=== PATIENT | female | born 1970 ===

== ENCOUNTER 2016-08-26 10:03 | Day surgery (SDC) | payer OTHER ==
[2016-08-09 10:32] VITALS: BMI 40.3
[2016-08-26] MEDS ORDERED: Acetaminophen-Codeine 300/30 mg Tab PO PRN (10:54)
[2016-08-26] MEDS ORDERED: Dextrose 5%/0.45% NS 1,000 ML IV SCH (11:00)
[2016-08-26] MEDS ORDERED: Propofol 10 mg/ml Inj (20 ML) ONE (11:31)
[2016-08-26] MEDS ORDERED: Succinylcholine Chloride 20 mg/ml Syr (5 ml) IV ONE (11:31)
[2016-08-26] MEDS ORDERED: Lactated Ringer's 1,000 ML IV ONE (11:35)
[2016-08-26] MEDS ORDERED: ceFAZolin IV 1 gm in Dextrose 2 GM/100 ML BAG IVPB ONE (11:36)
[2016-08-26] MEDS ORDERED: HYDROmorphone 0.5 mg/0.5 ml ISec IVP PRN (12:11)
[2016-08-26] MEDS ORDERED: Lactated Ringer's 1,000 ML IV SCH (12:15)
--- NOTE | 2016-08-26 12:36 | OP ---
PROCEDURE DATE: 08/26/2016 PREOPERATIVE DIAGNOSIS: Possible right piriform sinus lesion. POSTOPERATIVE DIAGNOSIS: Possible right piriform sinus lesion. PROCEDURE: Direct laryngoscopy with biopsy. SIGNIFICANT FINDINGS: No masses, no lesions. PROCEDURE: The patient was brought in the room, placed in supine position. Anesthesia was initiated through an ET tube. Shoulder roll was placed, neck extended. Tooth cover was placed over the upper teeth in order to protect them and was removed at the end of the case. Direct laryngoscope was inse rted into the oral cavity, passed through the oropharynx and hypopharynx. The base of tongue, vallec amy, epiglottis, AE folds, false cords, true cords, piriform sinuses, arytenoids were brought into vi ew. No masses or lesions were noted. Multiple biopsies of the right piriform sinus were taken. Ble eding was controlled using cold water irrigation. The scope was removed. The patient was taken off anesthesia and taken to recovery room in stable manner. Vinnie Zapata MD cc: [id number] TT: 08/26/2016 12:35:41 in
[2016-08-26 13:34] VITALS: RESP 34; TEMP 98.3; O2SAT 100
[2016-08-26 14:31] VITALS: BP 129/74; PULSE 79
== END 2016-08-26 14:00 | disposition home or self-care (01) ==
LOC: C.SDS 10:03
PROVIDERS: ATTEND Otolaryngology
DX: J38.1 Polyp of vocal cord and larynx (principal)
CPT/HCPCS: 31535; 88305; J0690; J2704; J3010; J7120

== ENCOUNTER 2016-10-03 14:43 | Emergency (ER) | payer OTHER ==
[2016-10-03 14:44] VITALS: BMI 40.3
[2016-10-03 14:48] VITALS: BP 126/84; PULSE 89; RESP 16; TEMP 98.7; O2SAT 98
[2016-10-03] MEDS ORDERED: Oxycodone/Acetaminophen 5/325 mg Tab PO STA (15:03)
[2016-10-03] MEDS ORDERED: Tetracaine 0.5% Ophth (OR ONLY) OU STA (15:03)
[2016-10-03] MEDS ORDERED: Oxycodone/Acetaminophen 5/325 mg Tab ONE (15:09)
[2016-10-03] MEDS ORDERED: Tetracaine 0.5% Ophth (OR ONLY) ONE (15:09)
--- NOTE | 2016-10-03 15:15 | C.PDOC ---
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 Patient reports hot oil splashed into her eye and is now complaining of burning and FB sensation. Denies use of contact lens, vision changes, headache or dizziness. 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 HOT OIL SPLASHED INTO EYE. CO BURNING, FB SENSATION. DENIES CONTACT LENS USE, VISION LOSS. EXAM MOD DIST HEENT L EYE NO PERIORB SWELL, TRAUMA. EOMI. L EYE +CORNEAL BURN 9-12 O CLOCK W GEN CONJ ERYTHEMA. PERRLA. Time Seen by Provider: 10/03/16 14:59 Chief Complaint (Nursing): Eye Problem History Per: Patient History/Exam Limitations: no limitations Onset/Duration Of Symptoms: Sudden Onset (CHOREOGRAPHY DIRECTOR) Current Symptoms Are (Timing): Still Present Past Medical History Reviewed: Historical Data, Nursing Documentation, Vital Signs Vital Signs: Last Vital Signs Temp 98.7 F 10/03/16 14:47 Pulse 89 10/03/16 14:47 Resp 16 10/03/16 14:47 BP 126/84 10/03/16 14:47 Pulse Ox 98 10/03/16 15:19 - Medical History PMH: Asthma, HTN, Sleep Apnea Family History: States: No Known Family Hx - Social History Hx Tobacco Use: No Hx Alcohol Use: No - Immunization History Hx Tetanus Toxoid Vaccination: No Hx Influenza Vaccination: No Hx Pneumococcal Vaccination: No Review Of Systems Except As Marked, All Systems Reviewed And Found Negative. Eyes: Positive for: Other ((+) Left eye injury, burning and FB sensation ). Negative for: Vision Change Neurological: Negative for: Headache, Dizziness Physical Exam - Physical Exam Appears: Non-toxic, No Acute Distress Skin: Warm, Dry, No Rash Head: Atraumatic, Normacephalic Eye(s): right: Normal Inspection, left: PERRL, EOMI, Other (+Corneal burn 9-12 o clock position with general conjunctiva erythema. No periorbitak swelling. No trauma) Extremity: Normal ROM, No Swelling Neurological/Psych: Oriented x3, Normal Speech, Normal Motor ED Course And Treatment O2 Sat by Pulse Oximetry: 98 - Physician Consult Information Time Consulting Physician Contacted: 15:13 Physician Contacted: JOESPH Outcome Of Conversation: D/W DR PINK OPTHO DECKHAND [employer]REES W ER MGMT, WILL FU IN OFFICE TODAY AFTER ED DC Medical Decision Making Medical Decision Making: PLAN: * Percocet PO * Zofran PO Disposition Counseled Patient/Family Regarding: Diagnosis, Need For Followup, Rx Given - Disposition Disposition: HOME/ ROUTINE Disposition Time: 15:16 Condition: IMPROVED Additional Instructions: GO TO EYE DOCTOR IMMEDIATELY. [facility] [address] [place] [address] Hours: Open today 9AM5PM Prescriptions: Acetaminophen/Codeine [Tylenol/Codeine 300 MG/30 MG] 2 tab PO Q6H #20 tab Ciprofloxacin 0.3% [Ciloxan 0.3% Ophth SOLN] 2 drop OD Q2 #1 bottle Ibuprofen [Motrin] 600 mg PO Q6 #30 tab Instructions: How to Use Eye Drops (ED), Second Degree Burn (ED) Forms: Work Excuse Print Language: CAMBODIAN - Clinical Impression Clinical Impression: Thermal burn of cornea - Scribe Statement The provider has reviewed the documentation as recorded by the Scribe Sharla Montgomery Provider Attestation: All medical record entries made by the Dianeibe were at my direction and personally dictated by me. I have reviewed the chart and agree that the record accurately reflects my personal performance of the history, physical exam, medical decision making, and the department course for this patient. I have also personally directed, reviewed, and agree with the discharge instructions and disposition. Procedures - Eye Procedure Alcaine Drops Administered: Yes (TETRACAINE) Progress: TETRACAINE APPLIED FOR PAIN RELIEF. EYE PATCH APPLIED BY ME
== END 2016-10-03 15:20 | disposition home or self-care (01) ==
LOC: C.ER 14:43
DX: T26.12XA Burn of cornea and conjunctival sac, left eye, initial encounter (principal); X10.2XXA Contact with fats and cooking oils, initial encounter; Y93.G3 Activity, cooking and baking; Y92.000 Kitchen of unspecified non-institutional (private) residence as the place of occurrence of the external cause

== ENCOUNTER 2017-04-10 11:11 | Emergency (ER) | payer OTHER ==
[2017-04-10 11:12] VITALS: BMI 40.3
[2017-04-10] MEDS ORDERED: Albuterol-Ipratrop 3 mg / 0.5 (3 ml) UD INH STA (14:18)
[2017-04-10] MEDS ORDERED: Albuterol-Ipratrop 3 mg / 0.5 (3 ml) UD ONE (14:21)
--- NOTE | 2017-04-10 14:45 | RAD ---
Chest x-ray two views History: Cough. Comparison: 08/09/2016 Findings: Diffuse increased interstitial lung markings which may represent mild venous congestion versus mild edema versus mild interstitial infiltrate. Clinical correlation. Mild patchy increased markings at the left lung base. Clinical correlation. Right hilar prominence. Mild cardiomegaly. Degenerative changes in the spine with paravertebral osteophytes. Impression: Diffuse increased interstitial lung markings which may represent mild venous congestion versus mild edema versus mild interstitial infiltrate. Clinical correlation. Mild patchy increased markings at the left lung base. Clinical correlation. Right hilar prominence. Mild cardiomegaly.
--- NOTE | 2017-04-10 15:00 | C.PDOC ---
History Of Present Illness 46-year-old female presents to the emergency department with complaints of a cough, congestion and fever for the past three days. Patient denies any nausea/ vomiting, back pain, symptoms, change in bowel habits, or any other associated symptoms. No other complaints at this time. Time Seen by Provider: 04/10/17 14:00 Chief Complaint (Nursing): Flu-like Symptoms History Per: Patient History/Exam Limitations: no limitations Onset/Duration Of Symptoms: Days Current Symptoms Are (Timing): Still Present Past Medical History Reviewed: Historical Data, Nursing Documentation, Vital Signs Vital Signs: Last Vital Signs Temp 97.8 F 04/10/17 15:08 Pulse 70 04/10/17 15:08 Resp 18 04/10/17 15:08 BP 132/86 04/10/17 15:08 Pulse Ox 98 04/10/17 15:08 - Medical History PMH: Asthma, HTN, Sleep Apnea Family History: States: No Known Family Hx - Social History Hx Tobacco Use: No Hx Alcohol Use: No Hx Substance Use: No - Immunization History Hx Tetanus Toxoid Vaccination: No Hx Influenza Vaccination: No Hx Pneumococcal Vaccination: No Review Of Systems Except As Marked, All Systems Reviewed And Found Negative. Constitutional: Positive for: Fever ENT: Positive for: Nose Congestion Cardiovascular: Negative for: Chest Pain, Palpitations Respiratory: Positive for: Cough. Negative for: Shortness of Breath Gastrointestinal: Negative for: Nausea, Vomiting Musculoskeletal: Negative for: Back Pain Neurological: Negative for: Weakness, Numbness, Headache, Dizziness Physical Exam - Physical Exam Appears: Non-toxic, No Acute Distress Skin: Warm, Dry, No Rash Head: Atraumatic, Normacephalic Eye(s): bilateral: Normal Inspection, PERRL Nose: Other (nasal congestion) Oral Mucosa: Moist Lips: Normal Appearing Neck: Normal ROM, Supple Cardiovascular: Rhythm Regular, No Murmur Respiratory: Normal Breath Sounds, No Accessory Muscle Use, No Rales, No Rhonchi , No Wheezing Extremity: Normal ROM Neurological/Psych: Oriented x3, Normal Speech ED Course And Treatment O2 Sat by Pulse Oximetry: 95 (on RA) Pulse Ox Interpretation: Normal Disposition - Disposition Referrals: [facility] [Outside] Disposition: HOME/ ROUTINE Disposition Time: 14:58 Condition: GOOD Additional Instructions: Follow up with the medical doctor/clinic within 1-2 days without fail. Return if worsened. Prescriptions: Loratadine [Claritin] 10 mg PO DAILY #10 tab predniSONE [Prednisone] 20 mg PO BID #10 tab Promethazine/Codeine [Phenergan/Codeine Oral Syrup] 5 ml PO Q8 PRN #50 ml PRN Reason: Cough Instructions: Acute Bronchitis (ED) Forms: [facility] (Senegalese), School Excuse, Work Excuse Print Language: STATELESS - Clinical Impression Clinical Impression: Bronchitis - Scribe Statement The provider has reviewed the documentation as recorded by the Scribe (Cara Tinoco) All medical record entries made by the Scribe were at my direction and personally dictated by me. I have reviewed the chart and agree that the record accurately reflects my personal performance of the history, physical exam, medical decision making, and the department course for this patient. I have also personally directed, reviewed, and agree with the discharge instructions and disposition.
[2017-04-10 15:09] VITALS: BP 132/86; PULSE 70; RESP 18; TEMP 97.8
[2017-04-10 15:19] VITALS: O2SAT 95
== END 2017-04-10 15:09 | disposition home or self-care (01) ==
LOC: C.ER 11:11
DX: J40 Bronchitis, not specified as acute or chronic (principal)

== ENCOUNTER 2017-07-23 21:19 | Emergency (ER) | payer OTHER ==
[2017-07-23 21:19] VITALS: BMI 40.3
[2017-07-23 21:37] VITALS: RESP 20; TEMP 98.6; O2SAT 100
--- NOTE | 2017-07-23 22:28 | C.PDOC ---
History Of Present Illness 46 year old female with a Hx of chronic back pain presents to the ER with a complaint of lower back pain that worsened today. Patient has not taken anything for the pain. Denies heavy lifting, trauma, dysuria, hematuria, incontinence, weakness or numbness. Time Seen by Provider: 07/23/17 21:40 Chief Complaint (Nursing): Back Pain History Per: Patient History/Exam Limitations: no limitations Onset/Duration Of Symptoms: Hrs Current Symptoms Are (Timing): Still Present Quality Of Discomfort: Unable To Describe Previous Symptoms: Chronic Pain Associated Symptoms: None Exacerbating Factor(s): Turning Recent travel outside of the [place]: No Past Medical History Reviewed: Historical Data, Nursing Documentation, Vital Signs Vital Signs: Last Vital Signs Temp 98.6 F 07/23/17 22:38 Pulse 88 07/23/17 22:38 Resp 20 07/23/17 22:38 BP 114/66 07/23/17 22:38 Pulse Ox 100 07/23/17 23:29 - Medical History PMH: Asthma, HTN, Sleep Apnea Family History: States: Unknown Family Hx - Social History Hx Tobacco Use: No Hx Alcohol Use: No Hx Substance Use: No - Immunization History Hx Tetanus Toxoid Vaccination: No Hx Influenza Vaccination: No Hx Pneumococcal Vaccination: No Review Of Systems Genitourinary: Negative for: Dysuria, Incontinence, Hematuria Musculoskeletal: Positive for: Back Pain Neurological: Negative for: Weakness, Numbness Physical Exam - Physical Exam Appears: Non-toxic, Other (Morbidly obese) Skin: Normal Color, Warm, Dry Head: Atraumatic, Normacephalic Eye(s): bilateral: Normal Inspection Back: No Vertebral Tenderness, Paraspinal Tenderness (Bilateral lumbar), Straight Leg Raising (Positive at 45 degrees) Extremity: Normal ROM (x4) Neurological/Psych: Oriented x3, Normal Speech, Normal Motor, Normal Sensation Gait: Steady ED Course And Treatment O2 Sat by Pulse Oximetry: 100 (Room air) Pulse Ox Interpretation: Normal Progress Note: Flexeril and toradol administered. Patient is ambulatory in the ER with no pain or discomfort, will discharge home with instructions to follow up with PMD or return if symptoms worsen. Disposition Counseled Patient/Family Regarding: Diagnosis - Disposition Referrals: [facility] at [facility] [Outside] Disposition: HOME/ ROUTINE Disposition Time: 22:26 Condition: STABLE Additional Instructions: Take medications as directed Follow up with PMD Return to ER if worse Prescriptions: Cyclobenzaprine [Cyclobenzaprine HCl] 10 mg PO HS #7 tab Naproxen [Naprosyn] 1 tab PO BID PRN #20 tab PRN Reason: Pain Instructions: Low Back Pain (DC) Forms: [employer] (Argentine) Print Language: FRISIAN - Clinical Impression Clinical Impression: Low back pain - 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 - Scribe Statement The provider has reviewed the documentation as recorded by the Scribjanki Monge All medical record entries made by the Denisha were at my direction and personally dictated by me. I have reviewed the chart and agree that the record accurately reflects my personal performance of the history, physical exam, medical decision making, and the department course for this patient. I have also personally directed, reviewed, and agree with the discharge instructions and disposition.
[2017-07-23 22:39] VITALS: BP 114/66; PULSE 88
== END 2017-07-23 22:39 | disposition home or self-care (01) ==
LOC: C.ER 21:19
DX: M54.5 Low back pain (principal); I10 Essential (primary) hypertension
CPT/HCPCS: 96372; 99283; J1885

== ENCOUNTER 2018-01-02 08:56 | Emergency (ER) | payer OTHER, SELFPAY ==
[2018-01-02 08:56] VITALS: BMI 40.3
--- NOTE | 2018-01-02 09:11 | C.PDOC ---
History Of Present Illness 47 y/o female presents to the ED with recurrent left lower back pain, ongoing for 3 days. Patient states the pain occasionally radiates to the left buttock and worsens with movement. No associated weakness or numbness. Patient with prior ED visits for the same. She denies any recent trauma or fall. Denies any other associated symptoms. Time Seen by Provider: 01/02/18 09:10 Chief Complaint (Nursing): Back Pain History Per: Patient History/Exam Limitations: no limitations Onset/Duration Of Symptoms: Days (x3) Current Symptoms Are (Timing): Still Present Past Medical History Reviewed: Historical Data, Nursing Documentation, Vital Signs Vital Signs: Last Vital Signs Temp 98.3 F 01/02/18 09:03 Pulse 76 01/02/18 09:03 Resp 20 01/02/18 09:03 BP 138/85 01/02/18 09:03 Pulse Ox 95 01/02/18 09:03 - Medical History PMH: Asthma, HTN, Sleep Apnea Denies: Chronic Kidney Disease Family History: States: Unknown Family Hx - Social History Hx Tobacco Use: No Hx Alcohol Use: No Hx Substance Use: No - Immunization History Hx Tetanus Toxoid Vaccination: No Hx Influenza Vaccination: No Hx Pneumococcal Vaccination: No Review Of Systems Except As Marked, All Systems Reviewed And Found Negative. Cardiovascular: Negative for: Chest Pain Respiratory: Negative for: Shortness of Breath Genitourinary: Negative for: Dysuria, Frequency, Incontinence Musculoskeletal: Positive for: Back Pain Skin: Negative for: Rash Neurological: Negative for: Weakness, Numbness, Incoordination Physical Exam - Physical Exam Appears: Non-toxic, No Acute Distress Skin: Normal Color, Warm, Dry Head: Atraumatic, Normacephalic Eye(s): bilateral: Normal Inspection Neck: Normal ROM Chest: Symmetrical Respiratory: No Accessory Muscle Use, Other (NARD) Back: No CVA Tenderness, No Vertebral Tenderness, Decreased ROM (Limited full extension/ROM) Extremity: Bilateral: Atraumatic, Normal Color And Temperature, Normal ROM Pulses: Left Dorsalis Pedis: Normal, Right Dorsalis Pedis: Normal Neurological/Psych: Oriented x3, Normal Speech, Normal Cranial Nerves, Normal Motor, Normal Sensation Gait: Steady ED Course And Treatment - Laboratory Results Urine POC: Negative O2 Sat by Pulse Oximetry: 95 (RA) Pulse Ox Interpretation: Normal Progress - Data Reviewed Data Reviewed: Old records Medical Decision Making Medical Decision Making: Impression: Recurrent low back pain Plan: --Urine preg --Toradol 30 mg IM --Flexeril 10 mg PO --Gabapentin 300 mg PO --Tylenol 975 mg PO --Reassess and dispo On reassessment, patient reports improvement in symptoms and is stable for discharge home. Advised patient to follow up with PMD for further evaluation. Disposition Counseled Patient/Family Regarding: Studies Performed, Diagnosis, Need For Followup, Rx Given - Disposition Referrals: [facility] [Outside] [facility] [Outside] Disposition: HOME/ ROUTINE Disposition Time: 09:18 Condition: IMPROVED Instructions: Sciatica (DC) Forms: [employer] (Bahamian), Work Excuse Print Language: SLOVENIAN - POA Present On Arrival: None - Clinical Impression Clinical Impression: Sciatica - Scribe Statement The provider has reviewed the documentation as recorded by the Scribe (Sapna Andrade) Provider Attestation: All medical record entries made by the Scribe were at my direction and personally dictated by me. I have reviewed the chart and agree that the record accurately reflects my personal performance of the history, physical exam, medical decision making, and the department course for this patient. I have also personally directed, reviewed, and agree with the discharge instructions and disposition.
[2018-01-02 09:54] VITALS: BP 139/85; PULSE 74; RESP 18; TEMP 98.5
[2018-01-02 12:14] VITALS: O2SAT 95
== END 2018-01-02 10:11 | disposition home or self-care (01) ==
LOC: C.ER 08:56
DX: M54.30 Sciatica, unspecified side (principal)
CPT/HCPCS: 96372; 99283; J1885

== ENCOUNTER → 2018-01-09 08:50 | Emergency (ER) | payer SELFPAY ==
[2018-01-09 08:51] VITALS: BMI 40.3
== END | disposition left against medical advice (07) ==
LOC: C.ER 08:50
DX: Z02.89 Encounter for other administrative examinations (principal); R42 Dizziness and giddiness

== ENCOUNTER 2018-02-08 21:25 | Emergency (ER) | payer MEDICAID, OTHER, SELFPAY ==
[2018-02-08 21:26] VITALS: BMI 40.3
[2018-02-08 21:39] VITALS: BP 107/69; PULSE 86; RESP 20; TEMP 98.5; O2SAT 96
[2018-02-08] MEDS ORDERED: Sodium Chloride 0.9% 1,000 ML IV ONE (21:55)
[2018-02-08] MEDS ORDERED: Clindamycin 300 MG in Sodium Chloride 0.9% 50 ML IVPB STA (21:56)
[2018-02-08 22:24] LABS: BASO # 0.1 K/uL (0.0-0.2); BASO % 1.3 % (0.0-2.0); EOS # 0.3 K/uL (0.0-0.7); EOS % 2.6 % (0.0-4.0); HEMOGLOBIN 12.5 g/dL (11.0-16.0); LYMPH % 28.1 % (20.0-40.0); MEAN CELL VOLUME 82.6 fL (81.0-99.0); MEAN CORPUSCULAR HEMOGLOBIN 27.2 pg (27.0-31.0); MEAN CORPUSCULAR HGB CONC 32.9 g/dL (33.0-37.0); MONO % 8.8 % (0.0-10.0); NEUT # 6.4 K/uL (1.8-7.0); NEUT % 59.2 % (50.0-75.0); NRBC % 0.1 % (0.0-2.0); RBC 4.61 Mil/uL (3.80-5.20); RED CELL DISTRIBUTION WIDTH 13.5 % (11.5-14.5); WHITE BLOOD COUNT 10.8 K/uL (4.8-10.8)
[2018-02-08 22:33] LABS: HCG,QUALITATIVE URINE NEGATIVE (NEGATIVE)
[2018-02-08 22:38] LABS: SQUAMOUS EPITHIAL 5 /hpf (0-5); URINE BACTERIA FEW (<OCC); URINE BILIRUBIN NEGATIVE (NEGATIVE); URINE BLOOD NEGATIVE (NEGATIVE); URINE CALCIUM OXALATE CRYSTALS OCC /hpf (<OCC); URINE COLOR Yellow (YELLOW); URINE GLUCOSE (UA) NORMAL (Normal); URINE LEUKOCYTE ESTERASE TRACE Leu/uL (Negative); URINE PROTEIN NEGATIVE (NEGATIVE); URINE UROBILINOGEN NORMAL mg/dL (0.2-1.0)
[2018-02-08 22:39] LABS: URINE CLARITY Hazy (Clear)
[2018-02-08 22:39] LABS: BLOOD UREA NITROGEN 21 mg/dL (7-17); CALCIUM 9.3 mg/dl (8.6-10.4); GFR NON-AFRICAN AMERICAN 60
--- NOTE | 2018-02-08 22:44 | C.PDOC ---
History Of Present Illness 47 yo female come in for evaluation of sore throat gradually developed for past 2 days associated with mod pain with swallow. Pt denies fever, chills, headache, dizziness, drooling, dyspna, cough, CP, SOB, abd. pain, V/D, UTI sx, denies known sick contact. Ambulate to Ed for evaluation, not in any apparent distress. Time Seen by Provider: 02/08/18 21:26 Chief Complaint (Nursing): ENT Problem History Per: Patient Past Medical History Reviewed: Historical Data, Nursing Documentation, Vital Signs Vital Signs: Last Vital Signs Temp 98.5 F 02/08/18 21:31 Pulse 86 02/08/18 21:31 Resp 20 02/08/18 21:31 BP 107/69 02/08/18 21:31 Pulse Ox 96 02/08/18 21:31 - Medical History PMH: Asthma, HTN, Sleep Apnea Denies: Chronic Kidney Disease Other Surgeries: "Vocal cord" surgery 7 months go Family History: States: Unknown Family Hx - Social History Hx Tobacco Use: No Hx Alcohol Use: No Hx Substance Use: No - Immunization History Hx Tetanus Toxoid Vaccination: No Hx Influenza Vaccination: No Hx Pneumococcal Vaccination: No Review Of Systems Except As Marked, All Systems Reviewed And Found Negative. Constitutional: Negative for: Fever, Chills ENT: Positive for: Throat Pain, Throat Swelling. Negative for: Ear Discharge, Nose Discharge Cardiovascular: Negative for: Chest Pain Respiratory: Negative for: Cough, Shortness of Breath, Wheezing Gastrointestinal: Negative for: Nausea, Vomiting, Abdominal Pain, Diarrhea Genitourinary: Negative for: Dysuria Musculoskeletal: Negative for: Neck Pain Skin: Negative for: Rash Neurological: Negative for: Weakness, Numbness, Altered Mental Status, Headache, Dizziness Physical Exam - Physical Exam Appears: Well, Non-toxic, No Acute Distress Skin: Normal Color, Warm, Dry, No Rash Head: Normacephalic Eye(s): bilateral: PERRL Ear(s): Bilateral: Normal Nose: No Flaring, No Discharge Oral Mucosa: Moist, No Drooling Tongue: Normal Appearing Lips: Normal Appearing Throat: Erythema (B/L), Exudate (diffuse B/L tonsillar), No Drooling Neck: Trachea Midline, Supple Lymphatic: Adenopathy (mild anterior cervical B/L) Cardiovascular: Rhythm Regular, No Murmur, No JVD Respiratory: No Decreased Breath Sounds, No Accessory Muscle Use, No Stridor, No Wheezing Gastrointestinal/Abdominal: Soft, No Tenderness, No Distention, No Guarding Back: No CVA Tenderness Extremity: Normal ROM, No Pedal Edema, No Deformity, No Swelling Neurological/Psych: Oriented x3, Normal Speech ED Course And Treatment - Laboratory Results Result Diagrams: 02/08/18 22:15 02/08/18 22:16 Lab Interpretation: No Changes Compared To Prior Results (known hx of trombocytopenia) Urine POC: Negative O2 Sat by Pulse Oximetry: 96 Pulse Ox Interpretation: Normal Progress Note: On re-eval, pt is awake, playful, noty in any apaprent disrtress. Afebrile, hemodynamicaly stable. Non-toxic, tolerate po well in ED. PulseOx 96% RA. ENT: exam c/w acute tosillitis. uvula midline, no edema. Neck: Supple, (-) meningeal sign, (-) carotid bruits B/L. Lungs: CTA B/L, BS equal B/L. Abd: benign. Neuorlogicaly intact. Blood work review and compare to previous visits- no new acute changes, Pt has hx of thrombocytopenia. Otherwise, no acute leukocytosis or left shift. Pt advised on course of ds. ref. to f/u with PMD, ENT in 2-3 days for re-eavl. return if any new changes. Disposition Counseled Patient/Family Regarding: Studies Performed, Diagnosis, Need For Followup, Rx Given - Disposition Referrals: [facility] [Outside] Disposition: HOME/ ROUTINE Disposition Time: 23:27 Condition: STABLE Additional Instructions: Encourage fluids Gurgle throat with warm salty water Take medication as prescribed Follow up with PMD in 2-3 days for re-evaluation. return to ED if any worsening or new changes. Alentar los fluidos Garganta gorgosa con agua salada tibia Ulysses la medicacin segn lo prescrito. Seguimiento con PMD en 2-3 anderson para la reevaluacin. Regrese a ED si hay algn empeoramiento o nuevos cambios. Prescriptions: Clindamycin [Cleocin] 300 mg PO Q6 #28 cap Prednisone [Deltasone] 40 mg PO DAILY #6 tablet Instructions: Sore Throat, Adult (DC) Forms: [email or web address] (Turkmen) Print Language: NEPALESE - Clinical Impression Clinical Impression: Tonsillitis, Thrombocytopenia
== END 2018-02-08 23:41 | disposition home or self-care (01) ==
LOC: C.ER 21:25
DX: J03.90 Acute tonsillitis, unspecified (principal); D69.6 Thrombocytopenia, unspecified
CPT/HCPCS: 80048; 81001; 84703; 85025; 87040; 87070; 87430; 96365; 96375; 99283; J2930; J7030

== ENCOUNTER 2018-02-18 14:56 | Emergency (ER) | payer OTHER ==
[2018-02-18 15:04] VITALS: BMI 42.0
[2018-02-18 15:06] VITALS: BP 123/69; PULSE 96; RESP 18; TEMP 99; O2SAT 95
--- NOTE | 2018-02-18 15:59 | C.PDOC ---
History Of Present Illness 47 year old female presents to ED complaining of right wrist pain since 2 days ago. Patient states she was doing some heavy lifting and developed pain to her right wrist. Patient denies any sensation problems, weakness, numbness, or other injuries. Chief Complaint (Nursing): Upper Extremity Problem/Injury History Per: Patient History/Exam Limitations: no limitations Onset/Duration Of Symptoms: Days Current Symptoms Are (Timing): Still Present Past Medical History Reviewed: Historical Data, Nursing Documentation, Vital Signs Vital Signs: Last Vital Signs Temp 99.0 F 02/18/18 15:04 Pulse 96 H 02/18/18 15:04 Resp 18 02/18/18 15:04 BP 123/69 02/18/18 15:04 Pulse Ox 95 02/18/18 15:04 - Medical History PMH: Asthma, HTN, Sleep Apnea Denies: Chronic Kidney Disease Surgical History: No Surg Hx Family History: States: No Known Family Hx - Social History Hx Tobacco Use: No Hx Alcohol Use: No Hx Substance Use: No - Immunization History Hx Tetanus Toxoid Vaccination: No Hx Influenza Vaccination: No Hx Pneumococcal Vaccination: No Review Of Systems Except As Marked, All Systems Reviewed And Found Negative. Musculoskeletal: Positive for: Hand Pain (Right wrist) Neurological: Negative for: Weakness, Numbness Physical Exam - Physical Exam Appears: Non-toxic, No Acute Distress Skin: Warm, Dry Head: Atraumatic, Normacephalic Eye(s): bilateral: Normal Inspection Oral Mucosa: Moist Neck: Supple Chest: Symmetrical Cardiovascular: Rhythm Regular, No Murmur Respiratory: Normal Breath Sounds, No Rales, No Rhonchi, No Wheezing Extremity: Normal ROM, Tenderness (diffuse right wrist tenderness) Extremity: Bilateral: Normal Color And Temperature, Normal ROM Neurological/Psych: Oriented x3, Normal Speech, Normal Motor, Normal Sensation, Normal Reflexes ED Course And Treatment O2 Sat by Pulse Oximetry: 95 (RA) Pulse Ox Interpretation: Normal Medical Decision Making Medical Decision Making: Plan: --Ibuprofen --Right wrist x-ray Wrist XR showed no fracture or dislocation. Soft tissue surrounding. 4:16pm Velcro cockup splint applied. Disposition - Disposition Referrals: Fabricio Calvin III, MD [Staff Provider] - Disposition: HOME/ ROUTINE Disposition Time: 16:06 Condition: STABLE Prescriptions: Ibuprofen [Motrin] 600 mg PO TID #20 tab Instructions: Wrist Sprain (DC), Common Wrist Injuries Forms: Gen Discharge Inst Maori, [facility] (Danish), Work Excuse - POA Present On Arrival: None - Clinical Impression Clinical Impression: Right wrist sprain - Scribe Statement The provider has reviewed the documentation as recorded by the Dianeibjanki Romero Provider Attestation: All medical record entries made by the Dianeibe were at my direction and personally dictated by me. I have reviewed the chart and agree that the record accurately reflects my personal performance of the history, physical exam, medical decision making, and the department course for this patient. I have also personally directed, reviewed, and agree with the discharge instructions and disposition.
--- NOTE | 2018-02-18 16:54 | RAD ---
Right wrist three views HISTORY: Trauma. COMPARISON: None available. Findings: Narrowing of the radiocarpal joint space. Punctate radiopaque density seen within the posterior aspect of the mid carpal bones on the lateral view which may represent a small triquetral injury/small triquetral fracture. Clinical correlation. Correlation with CT scan may be helpful if clinically indicated. On the oblique view, there is an ovoid radiopaque density seen at the radial aspect of the trapezium, nonspecific. This may represent a soft tissue calcification and or accessory ossicle. Clinical correlation. Impression: Punctate radiopaque density seen within the posterior aspect of the mid carpal bones on the lateral view which may represent a small triquetral injury/small triquetral fracture. Clinical correlation. Correlation with CT scan may be helpful if clinically indicated. On the oblique view, there is an ovoid radiopaque density seen at the radial aspect of the trapezium, nonspecific. This may represent a soft tissue calcification and or accessory ossicle. Clinical correlation.
== END 2018-02-18 16:28 | disposition home or self-care (01) ==
LOC: C.ER 14:56
DX: S63.501A Unspecified sprain of right wrist, initial encounter (principal); X50.0XXA Overexertion from strenuous movement or load, initial encounter; Y92.9 Unspecified place or not applicable

== ENCOUNTER 2018-04-26 10:23 | Outpatient (CLI) | payer OTHER | END 2018-04-26 10:24 | disposition home or self-care (01) | LOC: C.MAMMO 10:24 ==

== ENCOUNTER 2018-05-10 20:26 | Emergency (ER) | payer OTHER ==
[2018-05-10 20:26] VITALS: BMI 42.0
[2018-05-10 21:02] VITALS: BP 151/93; PULSE 95; RESP 20; TEMP 98.5; O2SAT 98
--- NOTE | 2018-05-10 21:13 | C.PDOC ---
History Of Present Illness 47 y/o female with PMH of asthma, HTN presents to the ED c/o left knee pain x 3 days. Pain is sharp, located on the anterior knee, worse with ambulation. Pt ambulated into the ED without difficulty. Has not taken any medication for pain. Denies calf pain, calf swelling, trauma/injury, posterior knee pain, swelling, redness, bruising, numbness, weakness, paresthesias, or any other associated symptoms. Time Seen by Provider: 05/10/18 21:06 Chief Complaint (Nursing): Lower Extremity Problem/Injury History Per: Patient History/Exam Limitations: no limitations Past Medical History Reviewed: Historical Data, Nursing Documentation, Vital Signs Vital Signs: Last Vital Signs Temp 98.5 F 05/10/18 20:59 Pulse 95 H 05/10/18 20:59 Resp 20 05/10/18 20:59 BP 151/93 H 05/10/18 20:59 Pulse Ox 98 05/10/18 20:59 - Medical History PMH: Asthma, HTN, Sleep Apnea Denies: Chronic Kidney Disease Family History: States: No Known Family Hx - Social History Hx Tobacco Use: No Hx Alcohol Use: No Hx Substance Use: No - Immunization History Hx Tetanus Toxoid Vaccination: No Hx Influenza Vaccination: No Hx Pneumococcal Vaccination: No Review Of Systems Constitutional: Negative for: Fever, Chills Eyes: Negative for: Vision Change Cardiovascular: Negative for: Chest Pain, Palpitations, Light Headedness Respiratory: Negative for: Cough, Shortness of Breath Gastrointestinal: Negative for: Nausea, Vomiting, Abdominal Pain, Diarrhea, Constipation Musculoskeletal: Positive for: Leg Pain (left knee). Negative for: Back Pain Skin: Negative for: Rash, Bruising Neurological: Negative for: Weakness, Numbness, Headache, Dizziness Physical Exam - Physical Exam Appears: Well, Non-toxic, No Acute Distress Skin: Normal Color, Warm, Dry Head: Atraumatic, Normacephalic Eye(s): bilateral: Normal Inspection, PERRL, EOMI Nose: Normal Oral Mucosa: Moist Neck: Normal, Normal ROM, Supple Cardiovascular: Rhythm Regular Respiratory: Normal Breath Sounds Extremity: Normal ROM, Tenderness (anterior left knee, lateral to patella and over patellar tendon), No Calf Tenderness, Capillary Refill (<2s), No Deformity, No Swelling Extremity: Left: Painful To Bear Weight, Bilateral: Atraumatic, No Pedal Edema, Normal Color And Temperature, Normal ROM Pulses: Left Dorsalis Pedis: Normal, Right Dorsalis Pedis: Normal Neurological/Psych: Oriented x3, Normal Speech, Normal Motor Gait: Steady ED Course And Treatment O2 Sat by Pulse Oximetry: 98 Medical Decision Making Medical Decision Making: Initial Plan: * Tylenol * Left Knee XR * Reassess and Disposition Patient has persistent pain, Toradol and lidoderm ordered. Left knee XR negative for acute fracture or dislocation as read by me. Patient reports decreased pain after medication. CHAVA bandage applied to left knee by me. Advised orthopedic followup and given home prescription for pain. Pt ambulating with steady gait. Diagnostic testing results and plan of care discussed with patient. Strict instructions given regarding prescription use, importance of followup, and signs/symptoms to return to ER including numbness, paresthesias, weakness, or any other new/worsening symptoms. Pt verbalized understanding of discussion. Kan dior is A&Ox3, ambulating with steady gait, with vital signs stable for discharge. Translation provided by family. Disposition - Disposition Referrals: [facility] [Outside] [facility] [place] [Outside] Fabricio Calvin III, MD [Staff Provider] - Disposition: HOME/ ROUTINE Disposition Time: 22:30 Condition: IMPROVED Additional Instructions: Ibuprofeno cada 8 horas con alimentos segn sea necesario para el dolor. Lidoderm parches diariamente 12 horas, 12 horas de descanso [place], no actividad vigorosa. Seguimiento con ortopedia en 2 anderson. Seguimiento con mdico primario o clnica con 2 andersno. Regrese a Er con cualquier sntoma nuevo / que empeora Prescriptions: Ibuprofen [Motrin Tab] 600 mg PO Q8 #30 tab Lidocaine 5% [Lidoderm] 1 ea TD DAILY PRN #30 patch PRN Reason: Pain, Mild (1-3) Instructions: Tendonitis (DC), Knee Pain (DC), Patellofemoral Pain Forms: Gen Discharge Inst Mozambican, [facility] (Mozambican), Work Excuse Print Language: FINNISH - Clinical Impression Clinical Impression: Knee pain
[2018-05-10] MEDS ORDERED: Lidocaine 5% Patch TD STA (21:56)
[2018-05-10] MEDS ORDERED: Lidocaine 5% Patch TD ONE (22:13)
--- NOTE | 2018-05-11 09:51 | RAD ---
Date of service: 05/10/2018 PROCEDURE: Left Knee Radiographs. HISTORY: Pain. COMPARISON: None. FINDINGS: BONES: Bone alignment and mineralization are normal. There is no acute displaced fracture or bone destruction. JOINTS: Normal. No osteoarthritis. JOINT EFFUSION: None. OTHER FINDINGS: None. IMPRESSION: No acute fracture or dislocation.
== END 2018-05-10 22:42 | disposition home or self-care (01) ==
LOC: C.ER 20:26
DX: M25.562 Pain in left knee (principal)
CPT/HCPCS: 73562; 96372; 99283; J1885

== ENCOUNTER 2018-06-03 11:40 | Emergency (ER) | payer OTHER ==
[2018-06-03 11:40] VITALS: BMI 42.0
[2018-06-03 11:59] VITALS: TEMP 98.8
[2018-06-03] MEDS ORDERED: Albuterol-Ipratrop 3 mg / 0.5 (3 ml) UD INH STA (12:50)
[2018-06-03] MEDS ORDERED: Albuterol-Ipratrop 3 mg / 0.5 (3 ml) UD ONE (12:57)
--- NOTE | 2018-06-03 12:57 | C.PDOC ---
History Of Present Illness 47 year old female with PMHx of asthma presents to the ED complaining of cough, subjective fever, difficulty breathing and bodyaches for 3 days. Reports she has been taking Advil with minimal relief, last one at 0500 this morning. She also noticed mild leakage of urine when she coughs. Reports she last used her Nebulizer last night. Denies any other complaints. Chief Complaint (Nursing): Cough, Cold, Congestion History Per: Patient History/Exam Limitations: no limitations Onset/Duration Of Symptoms: Days (3) Current Symptoms Are (Timing): Still Present Sick Contacts (Context): None Past Medical History Reviewed: Historical Data, Nursing Documentation, Vital Signs Vital Signs: Last Vital Signs Temp 98.8 F 06/03/18 11:58 Pulse 102 H 06/03/18 11:58 Resp 20 06/03/18 11:58 BP 103/71 06/03/18 11:58 Pulse Ox 96 06/03/18 11:58 - Medical History PMH: Asthma, HTN, Sleep Apnea Denies: Chronic Kidney Disease Surgical History: Other Surgeries: Throat surgery Family History: States: No Known Family Hx - Social History Hx Tobacco Use: No Hx Alcohol Use: No Hx Substance Use: No - Immunization History Hx Tetanus Toxoid Vaccination: No Hx Influenza Vaccination: No Hx Pneumococcal Vaccination: No Review Of Systems Constitutional: Positive for: Fever, Other (bodyaches) Cardiovascular: Negative for: Chest Pain Respiratory: Positive for: Cough, Shortness of Breath Gastrointestinal: Negative for: Nausea, Vomiting, Abdominal Pain, Diarrhea Genitourinary: Negative for: Dysuria, Frequency, Incontinence Musculoskeletal: Negative for: Back Pain Skin: Negative for: Rash Physical Exam - Physical Exam Appears: Non-toxic, No Acute Distress Skin: Warm, Dry Head: Atraumatic, Normacephalic Eye(s): bilateral: PERRL, EOMI, right: Normal Inspection, left: Other (pterygium) Ear(s): Bilateral: Normal Nose: No Flaring, No Discharge Oral Mucosa: Moist Throat: Erythema, Other (enlarged tonsils b/l) Neck: Trachea Midline, Supple Chest: Symmetrical Cardiovascular: Rhythm Regular Respiratory: No Rales, No Rhonchi, Wheezing Gastrointestinal/Abdominal: Soft, No Tenderness Neurological/Psych: Oriented x3, Normal Speech, Normal Cognition, Normal Motor, Normal Sensation Gait: Steady ED Course And Treatment O2 Sat by Pulse Oximetry: 96 (RA) Pulse Ox Interpretation: Normal Medical Decision Making Medical Decision Making: Plan - EKG - Nebulizer treatment - Medrol 125mg IVP - UA Patient reassessed and still wheezing. Albuterol given. Start Pred 60mg daily for 5 days Start Zpac Restart Albuterol 2 puffs every 4-5 hrs for cough/ shortness of breath Follow up with PMD in 1-2 days if symptoms persist Return to ED if symptoms worsen Patient verbalizes understanding and is in agreement with plan. Patient is stable for discharge. Disposition Counseled Patient/Family Regarding: Studies Performed, Diagnosis, Need For Followup, Rx Given - Disposition Referrals: Shantell Santana MD [Staff Provider] - Disposition: HOME/ ROUTINE Disposition Time: 14:44 Condition: IMPROVED Additional Instructions: Start Pred 60mg daily for 5 days Start Zpac Restart Albuterol 2 puffs every 4-5 hrs for cough/ shortness of breath Follow up with PMD in 1-2 days if symptoms persist Return to ED if symptoms worsen Prescriptions: Albuterol HFA [Ventolin HFA 90 mcg/actuation (8 g)] 2 puff IH [id number] #1 inhaler Azithromycin [Zithromax] 1 gm PO DAILY #1 packet predniSONE [predniSONE Tab] 60 mg PO DAILY #15 tab Instructions: Upper Respiratory Infection (ED) Forms: [employer] (S[place] Leonean), Work Excuse Print Language: BARBADIAN - Clinical Impression Clinical Impression: Asthma exacerbation - PA / [employer] / Resident Statement MD/DO has reviewed & agrees with the documentation as recorded. - Scribe Statement The provider has reviewed the documentation as recorded by the Dianeibjanki Munroe All medical record entries made by the Dianeibjanki were at my direction and personally dictated by me. I have reviewed the chart and agree that the record accurately reflects my personal performance of the history, physical exam, medical decision making, and the department course for this patient. I have also personally directed, reviewed, and agree with the discharge instructions and disposition.
[2018-06-03] MEDS ORDERED: Albuterol 0.083% Inhal Sol (2.5 mg/3 mL) UD ONE ×2 (13:20→13:48)
[2018-06-03 13:28] LABS: URINE BILIRUBIN 2+ (NEGATIVE); URINE BLOOD NEGATIVE (NEGATIVE); URINE CLARITY Hazy (Clear); URINE COLOR Amber (YELLOW); URINE GLUCOSE (UA) NORMAL (Normal); URINE PROTEIN 2+ mg/dL (NEGATIVE)
[2018-06-03] MEDS ORDERED: Albuterol 0.083% Inhal Sol (2.5 mg/3 mL) UD INH STA (13:36)
[2018-06-03 13:46] LABS: URINE BACTERIA OCC (<OCC); URINE LEUKOCYTE ESTERASE NEGATIVE Leu/uL (Negative)
[2018-06-03 14:40] VITALS: BP 135/83; PULSE 81; RESP 18; O2SAT 96
== END 2018-06-03 15:00 | disposition home or self-care (01) ==
LOC: C.ER 11:40
DX: J45.901 Unspecified asthma with (acute) exacerbation (principal)
CPT/HCPCS: 81001; 81025; 96374; 99283; J2930

== ENCOUNTER 2018-06-18 10:04 | Emergency (ER) | payer OTHER ==
[2018-06-18 13:41] VITALS: BMI 36.3
--- NOTE | 2018-06-18 13:44 | C.PDOC ---
History Of Present Illness Patient is a 47 year old female with a medical history of asthma, who presents with lower back pain for a few days. She says she woke up with the pain, its located bilaterally in the lower back. She also complains of burning pain in her lower extremities "the entire leg" and subjective fevers. She did not take her temperature at home. She took 1 tablet of ibuprofen last night which helped her symptoms. She denies trauma, heavy lifting, accidents, falls, difficulty walking, loss of bowel/incontinence, dysuria, numbness, tingling, loss of sensation. She says she has had this pain in the past. PMHx: asthma SurgHx: ectopic FamHx: Father- [place] SocHx: denies tobacco, alcohol, and drug use Allergies: NKDA Medications: Albuterol prn Time Seen by Provider: 06/18/18 12:38 Past Medical History - Medical History PMH: Asthma, HTN, Sleep Apnea Denies: Chronic Kidney Disease Surgical History: Family History: States: Unknown Family Hx - Social History Hx Tobacco Use: No Hx Alcohol Use: No Hx Substance Use: No - Immunization History Hx Tetanus Toxoid Vaccination: No Hx Influenza Vaccination: No Hx Pneumococcal Vaccination: No Review Of Systems Constitutional: Negative for: Fever, Chills, Weakness Genitourinary: Negative for: Dysuria, Hematuria Musculoskeletal: Positive for: Back Pain (b/l lower), Leg Pain ("burningL b/l). Negative for: Foot Pain Skin: Negative for: Rash Neurological: Negative for: Weakness, Numbness, Incoordination Physical Exam - Physical Exam Appears: Well, Non-toxic, No Acute Distress Skin: Normal Color, Warm, Dry, No Rash Back: No Vertebral Tenderness, No Decreased ROM, Muscle Spasm (lumbar, b/l), Paraspinal Tenderness (lumbar, b/l), Straight Leg Raising (normal) Extremity: Bilateral: Atraumatic, No Pedal Edema, Normal Color And Temperature, Normal ROM Pulses: Left Dorsalis Pedis: Normal, Right Dorsalis Pedis: Normal Neurological/Psych: Normal Motor, Normal Sensation, Other (normal gait) Gait: Steady Medical Decision Making Medical Decision Making: Ordered lumbar spine xray- negative for acute pathology; degenerative changes present. Ordered ibuprofen 600mg, Tylenol 650mg and a lidocaine patch once. Patient is stable and clear for discharge. Will be sent with prescriptions for ibuprofen 600mg Q8h for pain and flexeril 5mg PO HS at night. (Instructed to avoid driving and operating machinery while taking flexeril.) Disposition - Disposition Disposition: HOME/ ROUTINE Disposition Time: 13:43 Condition: STABLE Additional Instructions: Please follow up with your MD. Please take the following medications: Ibuprofen 600mg PO every 8 hours as needed for pain and Flexeril 5mg at night for 3 days (do not drive or operate machinery while taking this medication. If symptoms worsen or reoccur, please return to the nearest ER. Prescriptions: Cyclobenzaprine [Flexeril] 5 mg PO HS #3 tab Ibuprofen [Motrin Tab] 600 mg PO Q8H PRN #9 tab PRN Reason: Pain, Moderate (4-7) Instructions: Low Back Pain in Adults - Clinical Impression Clinical Impression: Back pain
--- NOTE | 2018-06-18 13:58 | RAD ---
Date of service: 06/18/2018 PROCEDURE: Radiographs of the Lumbar Spine. HISTORY: back pain COMPARISON: Lumbar spine radiographs performed 01/12/16 FINDINGS: BONES: Alignment appears satisfactory. Multilevel degenerative changes of the spine including prominent anterior osteophyte formation. Facet hypertrophy. No listhesis. No acute displaced fracture identified. DISC SPACES: Unremarkable. OTHER FINDINGS: None. IMPRESSION: Degenerative changes. No acute displaced fracture identified.
[2018-06-18] MEDS ORDERED: Lidocaine 5% Patch TD ONE (14:06)
[2018-06-18] MEDS ORDERED: Lidocaine 5% Patch TD STA (14:08)
[2018-06-18 14:15] VITALS: BP 101/64; PULSE 56; RESP 18; TEMP 98.6; O2SAT 99
[2018-06-19] MEDS ORDERED: Lidocaine 5% Patch TD ONE (13:41)
== END 2018-06-18 14:15 | disposition home or self-care (01) ==
LOC: C.ER 10:04
DX: M54.5 Low back pain (principal); I10 Essential (primary) hypertension

== ENCOUNTER 2018-07-18 09:30 | Outpatient (CLI) | payer OTHER | END 2018-07-18 09:31 | disposition home or self-care (01) | LOC: C.LAB 09:30 | DX: Z68.39 Body mass index [BMI] 39.0-39.9, adult (principal); Z13.9 Encounter for screening, unspecified ==

== ENCOUNTER → 2018-07-24 | Outpatient (CLI) | payer OTHER | LOC: C.USIC 09:11 ==